=== PATIENT | female | born 1975 | race Caucasian/White ===

== ENCOUNTER 2021-06-26 02:07 | Emergency (ER) | payer SELFPAY ==
[2021-06-26 02:29] VITALS: BMI 30.2
[2021-06-26 03:32] LABS: BASO % 0.4 % (0-2.0); HEMATOCRIT 39.1 % (32.4-45.2); HEMOGLOBIN 13.9 GM/dL (10.7-15.3); LYMPH % 18.9 % (8-40); MCH 29.7 pg (25.7-33.7); MCHC 35.5 g/dl (32.0-36.0); MEAN CELL VOLUME 83.5 fl (80-96); MEAN PLT VOLUME 8.7 fl (7.5-11.1); MONO % 8.2 % (3.8-10.2); NEUT % 71.5 % (42.8-82.8); PLATELET COUNT 235 10^3/uL (134-434); RBC 4.68 M/mm3 (3.60-5.2); RDW 13.3 % (11.6-15.6); WHITE BLOOD COUNT 10.2 K/mm3 (4.0-10.0)
[2021-06-26 03:54] LABS: CALCIUM 8.7 mg/dL (8.5-10.1)
[2021-06-26 03:55] LABS: BLOOD UREA NITROGEN 7.8 mg/dL (7-18)
[2021-06-26 03:58] LABS: CREATININE 0.6 mg/dL (0.55-1.3)
[2021-06-26 03:59] LABS: BILIRUBIN,TOTAL 0.4 mg/dL (0.2-1)
[2021-06-26 04:00] LABS: TOT PROT 7.3 g/dl (6.4-8.2)
[2021-06-26 06:28] LABS: EPI CELLS 24 /uL (0-25.1); HYALINE CASTS 0 /uL (0-3.1); URINE APPEARANCE CLEAR; URINE BACTERIA 242 /uL (0-1359); URINE BILIRUBIN NEGATIVE (NEGATIVE); URINE COLOR YELLOW; URINE GLUCOSE (UA) NEGATIVE (NEGATIVE); URINE KETONE NEGATIVE (NEGATIVE); URINE LEUK ESTERASE TRACE (NEGATIVE); URINE NITRITE NEGATIVE (NEGATIVE); URINE PROTEIN NEGATIVE (NEGATIVE); URINE RBC 9 /uL (0-23.9); URINE UROBILINOGEN 0.2 mg/dL (0.2-1.0); URINE WBC 20 /uL (0-25.8)
[2021-06-26 06:40] LABS: HCG,QUALITATIVE URINE Positive
[2021-06-26 08:05] VITALS: BP 125/67; PULSE 65; TEMP 98.3
== END 2021-06-26 09:51 | disposition home or self-care (01) ==
LOC: JER 02:07
DX: O26.891 Other specified pregnancy related conditions, first trimester (principal); R10.2 Pelvic and perineal pain; Z3A.08 8 weeks gestation of pregnancy
CPT/HCPCS: 36415; 76817-TC; 80053; 81003; 84702; 84703; 85025; 86850; 86900; 86901; 87086; 99284-25

== ENCOUNTER 2021-09-03 19:47 | Emergency (ER) | payer OTHER ==
[2021-09-03 20:22] VITALS: BP 113/73; PULSE 83; TEMP 98.1; BMI 34.7
[2021-09-03 21:09] LABS: BASO % 0.5 % (0-2.0); EOS % 2.3 % (0-4.5); HEMATOCRIT 35.9 % (32.4-45.2); HEMOGLOBIN 12.7 GM/dL (10.7-15.3); LYMPH % 20.8 % (8-40); MCH 29.7 pg (25.7-33.7); MCHC 35.4 g/dl (32.0-36.0); MEAN PLT VOLUME 8.3 fl (7.5-11.1); MONO % 8.6 % (3.8-10.2); NEUT % 67.8 % (42.8-82.8); PLATELET COUNT 218 10^3/uL (134-434); RBC 4.27 M/mm3 (3.60-5.2); RDW 13.8 % (11.6-15.6); WHITE BLOOD COUNT 9.3 K/mm3 (4.0-10.0)
[2021-09-03 21:20] LABS: EPI CELLS >36 /uL (0-25.1); HYALINE CASTS 1 /uL (0-3.1); PH,URINE 6.5 (5.0-8.0); URINE APPEARANCE CLEAR; URINE BACTERIA 165 /uL (0-1359); URINE BILIRUBIN NEGATIVE (NEGATIVE); URINE COLOR YELLOW; URINE GLUCOSE (UA) NEGATIVE (NEGATIVE); URINE KETONE NEGATIVE (NEGATIVE); URINE LEUK ESTERASE NEGATIVE (NEGATIVE); URINE NITRITE NEGATIVE (NEGATIVE); URINE PROTEIN NEGATIVE (NEGATIVE); URINE RBC 14 /uL (0-23.9); URINE WBC 11 /uL (0-25.8)
[2021-09-03 21:40] LABS: CALCIUM 8.7 mg/dL (8.5-10.1)
[2021-09-03 21:41] LABS: ALBUMIN 3.3 g/dl (3.4-5.0); BLOOD UREA NITROGEN 4.9 mg/dL (7-18)
[2021-09-03 21:44] LABS: CREATININE 0.4 mg/dL (0.55-1.3)
[2021-09-03 21:46] LABS: BILIRUBIN,TOTAL 0.4 mg/dL (0.2-1); TOT PROT 6.7 g/dl (6.4-8.2)
== END 2021-09-03 22:41 | disposition home or self-care (01) ==
LOC: JERFT 19:47 → JER 19:47 → JERFT 22:41
DX: O20.8 Other hemorrhage in early pregnancy (principal); Z3A.18 18 weeks gestation of pregnancy
CPT/HCPCS: 36415; 76817-TC; 80053; 81003; 85025; 87086; 99284-25

== ENCOUNTER 2022-01-27 09:40 | Inpatient (IN) | payer OTHER ==
[2022-01-27] MEDS ORDERED: BUTORPHANOL TARTRATE 1 MG/ML VIAL IVPUSH ONE (10:03)
[2022-01-27] MEDS ORDERED: PROMETHAZINE HCL 25 MG/1 ML VIAL IVPUSH ONE (10:03)
[2022-01-27] MEDS ORDERED: DEXTROSE 5%-LACTATED RINGERS 1,000 ML IV SCH (10:15)
[2022-01-27] MEDS ORDERED: BUTORPHANOL TARTRATE 1 MG/ML VIAL ONE (10:22)
[2022-01-27] MEDS ORDERED: OXYTOCIN 20 UNITS in 0.9% NS 20 UNIT/1,000 ML INFUS.BAG IV ONE (10:23)
[2022-01-27] MEDS ORDERED: PROMETHAZINE HCL 25 MG/1 ML VIAL ONE (10:23)
[2022-01-27 11:10] VITALS: BMI 36.2
[2022-01-27 11:15] LABS: BASO % 0.3 % (0-2.0); EOS % 0.5 % (0-4.5); HEMATOCRIT 36.6 % (32.4-45.2); HEMOGLOBIN 12.1 GM/dL (10.7-15.3); LYMPH % 8.6 % (8-40); MCH 26.7 pg (25.7-33.7); MEAN CELL VOLUME 80.8 fl (80-96); MONO % 5.8 % (3.8-10.2); NEUT % 84.8 % (42.8-82.8); PLATELET COUNT 177 10^3/uL (134-434); RBC 4.53 M/mm3 (3.60-5.2); RDW 14.7 % (11.6-15.6); WHITE BLOOD COUNT 11.6 K/mm3 (4.0-10.0)
[2022-01-27] MEDS ORDERED: OXYTOCIN 30 UNITS in 0.9% NS 30 UNIT/500 ML INFUS.BAG IVPB ONE (11:20)
[2022-01-27 11:24] LABS: INR 1.11 (0.83-1.09); PROTHROMBIN TIME (PATIENT) 12.8 SEC (9.7-13.0)
[2022-01-27 11:26] LABS: ACTIVATED PTT 24.5 SECONDS (25.2-36.5)
[2022-01-27 11:42] LABS: BLOOD UREA NITROGEN 8.9 mg/dL (7-18); CALCIUM 8.7 mg/dL (8.5-10.1)
[2022-01-27] MEDS ORDERED: OXYTOCIN 30 UNITS in 0.9% NS 30 UNIT/500 ML INFUS.BAG IVPB SCH (11:45)
[2022-01-27 11:46] LABS: CREATININE 0.4 mg/dL (0.55-1.3)
[2022-01-27 13:45] LABS: CORD HCO3 21.4 mmHg (20-29); CORD pH 7.201 (7.14-7.44)
[2022-01-27 13:49] LABS: CORD BASE EXCESS -8.8 mmol/L (0-2); CORD HCO3 17.4 mmHg (20-29); CORD PCO2 38.6 mmHg (30-78); CORD pH 7.272 (7.14-7.44)
[2022-01-27] MEDS ORDERED: WITCH HAZEL 50% (TUCKS) 40 PAD/JAR PAD TP PRN (13:52)
[2022-01-27] MEDS ORDERED: ACETAMINOPHEN 325 MG TABLET (FP) PO PRN (13:52)
[2022-01-27] MEDS ORDERED: METHYLERGONOVINE MALEATE 0.2 MG/1 ML AMP IM ONE (13:52)
[2022-01-27] MEDS ORDERED: IBUPROFEN 600 MG TABLET (FP) PO PRN (13:52)
[2022-01-27] MEDS ORDERED: BENZOCAINE 20% 57 GM BOTTLE TP PRN (13:52)
[2022-01-27] MEDS ORDERED: METHYLERGONOVINE MALEATE 0.2 MG/1 ML AMP IM PRN (13:52)
[2022-01-27] MEDS ORDERED: BISACODYL 10 MG SUPP.RECT RC PRN (13:52)
[2022-01-27] MEDS ORDERED: BENZOCAINE 28 GM HEMORRHOIDAL OINTMENT TP PRN (13:52)
[2022-01-27] MEDS ORDERED: oxyCODONE HCL 5 MG TABLET PO PRN (13:52)
[2022-01-27] MEDS ORDERED: OXYTOCIN 20 UNITS in 0.9% NS 20 UNIT/1,000 ML INFUS.BAG IV SCH (14:00)
[2022-01-27 15:01] VITALS: RESP 18
[2022-01-28 08:37] LABS: BASO % 0.3 % (0-2.0); EOS % 0.7 % (0-4.5); HEMATOCRIT 32.3 % (32.4-45.2); HEMOGLOBIN 11.2 GM/dL (10.7-15.3); LYMPH % 14.9 % (8-40); MCHC 34.6 g/dl (32.0-36.0); MEAN CELL VOLUME 80.8 fl (80-96); MEAN PLT VOLUME 9.6 fl (7.5-11.1); MONO % 7.4 % (3.8-10.2); NEUT % 76.7 % (42.8-82.8); PLATELET COUNT 160 10^3/uL (134-434); WHITE BLOOD COUNT 11.4 K/mm3 (4.0-10.0)
[2022-01-28] MEDS ORDERED: SENNOSIDES/DOCUSATE COMBO (SENNA PLUS) TABLET (UD) PO PRN (22:00)
[2022-01-28 22:51] VITALS: TEMP 98.5
[2022-01-29 10:51] VITALS: BP 125/81; PULSE 77
== END 2022-01-29 12:20 | disposition home or self-care (01) | DRG 560 ==
LOC: JLDR 09:40 → J3W 14:45
PROVIDERS: ADMIT Obstetrics & Gynecology; ATTEND Obstetrics & Gynecology
PROC: 10E0XZZ Delivery of Products of Conception, External Approach (ICD-10-PCS; principal; 2022-01-27)
DX: O80 Encounter for full-term uncomplicated delivery (principal); Z3A.38 38 weeks gestation of pregnancy; Z37.0 Single live birth
CPT/HCPCS: 36415; 36600; 59025; 59409; 80048; 82803; 85025; 85610; 85730; 86780; 86850; 86900; 86901; C9803-CS; U0003; U0005

== ENCOUNTER 2022-02-01 16:27 | Inpatient (IN) | payer OTHER ==
[2022-02-01 16:48] VITALS: BMI 35.6
[2022-02-01] MEDS ORDERED: LABETALOL HCL 5 MG/1 ML (100MG/20 ML VIAL) IVPUSH ONE ×2 (17:14→17:43)
[2022-02-01] MEDS ORDERED: MAGNESIUM 4GM/H20 - 4 GM/100 ML IVPB IVPB SCH (17:15)
[2022-02-01] MEDS ORDERED: MAGNESIUM SULFATE IN WATER 4 GM/100 ML IVPB IVPB ONE (17:22)
[2022-02-01] MEDS: MAGNESIUM SULFATE 20GM/500ML - 20 GM/500 ML INFUS.BAG IV SCH (18:00)
[2022-02-01 18:02] LABS: BASO % 0.4 % (0-2.0); HEMATOCRIT 33.3 % (32.4-45.2); HEMOGLOBIN 11.4 GM/dL (10.7-15.3); LYMPH % 10.8 % (8-40); MCH 28.1 pg (25.7-33.7); MCHC 34.3 g/dl (32.0-36.0); MEAN CELL VOLUME 81.9 fl (80-96); MEAN PLT VOLUME 7.9 fl (7.5-11.1); MONO % 7.4 % (3.8-10.2); NEUT % 80.4 % (42.8-82.8); PLATELET COUNT 288 10^3/uL (134-434); RBC 4.06 M/mm3 (3.60-5.2); WHITE BLOOD COUNT 9.6 K/mm3 (4.0-10.0)
[2022-02-01] MEDS ORDERED: LABETALOL HCL 100 MG TABLET (FP) PO SCH (18:03)
[2022-02-01] MEDS ORDERED: ACETAMINOPHEN 1000 MG/100 ML BAG IVPB ONE (18:08)
[2022-02-01 18:09] LABS: INR 1.28 (0.83-1.09); PROTHROMBIN TIME (PATIENT) 14.8 SEC (9.7-13.0)
[2022-02-01 18:11] LABS: ACTIVATED PTT 23.9 SECONDS (25.2-36.5)
[2022-02-01] MEDS ORDERED: ELECTROLYTE-148 SOLN 1,000 ML IV SCH (18:15)
[2022-02-01 18:19] LABS: CALCIUM 8.6 mg/dL (8.5-10.1)
[2022-02-01 18:20] LABS: ALBUMIN 2.8 g/dl (3.4-5.0); BLOOD UREA NITROGEN 13.7 mg/dL (7-18)
[2022-02-01 18:23] LABS: CREATININE 0.6 mg/dL (0.55-1.3); URIC ACID 4.1 mg/dL (2.6-7.2)
[2022-02-01 18:24] LABS: BILIRUBIN,TOTAL 0.4 mg/dL (0.2-1); TOT PROT 6.7 g/dl (6.4-8.2)
[2022-02-01] MEDS ORDERED: LABETALOL HCL 200 MG TABLET (FP) ONE ×2 (18:36→18:37)
[2022-02-01] MEDS ORDERED: ACETAMINOPHEN INJECTION 100 ML IVPB ONE (20:06)
[2022-02-02] MEDS ORDERED: MAGNESIUM SULFATE 20GM/500ML - 20 GM/500 ML INFUS.BAG ONE ×2 (03:13→14:19)
[2022-02-02] MEDS: MAGNESIUM SULFATE 20GM/500ML - 20 GM/500 ML INFUS.BAG IV SCH ×3 (03:15→18:28)
[2022-02-02] MEDS ORDERED: LABETALOL HCL 100 MG TABLET (FP) PO SCH (06:00)
[2022-02-02] MEDS ORDERED: LABETALOL HCL 200 MG TABLET (FP) ONE (06:34)
[2022-02-02 06:51] LABS: MAGNESIUM 5.2 mg/dL (1.8-2.4)
[2022-02-02] MEDS ORDERED: ZOLPIDEM TARTRATE 5 MG TABLET PO ONE (08:02)
[2022-02-02] MEDS ORDERED: ACETAMINOPHEN 1000 MG/100 ML BAG IVPB ONE (08:02)
[2022-02-02] MEDS: LABETALOL HCL 100 MG TABLET (FP) PO SCH ×2 (09:06→21:00)
[2022-02-02] MEDS ORDERED: ZOLPIDEM TARTRATE 5 MG TABLET ONE (10:22)
[2022-02-02 12:49] LABS: MAGNESIUM 5.6 mg/dL (1.8-2.4)
[2022-02-02 18:08] LABS: HEMATOCRIT 33.8 % (32.4-45.2); HEMOGLOBIN 11.2 GM/dL (10.7-15.3); MCHC 33.1 g/dl (32.0-36.0); MEAN CELL VOLUME 81.5 fl (80-96); PLATELET COUNT 327 10^3/uL (134-434); RBC 4.15 M/mm3 (3.60-5.2); RDW 15.2 % (11.6-15.6); WHITE BLOOD COUNT 8.4 K/mm3 (4.0-10.0)
[2022-02-02 18:25] LABS: MAGNESIUM 5.6 mg/dL (1.8-2.4)
[2022-02-02 18:26] LABS: CALCIUM 7.5 mg/dL (8.5-10.1)
[2022-02-02 18:27] LABS: ALBUMIN 2.7 g/dl (3.4-5.0); BLOOD UREA NITROGEN 7.2 mg/dL (7-18)
[2022-02-02 18:30] LABS: CREATININE 0.4 mg/dL (0.55-1.3)
[2022-02-02 18:31] LABS: BILIRUBIN,TOTAL 0.3 mg/dL (0.2-1)
[2022-02-02 18:32] LABS: TOT PROT 6.1 g/dl (6.4-8.2)
[2022-02-03 06:08] VITALS: PULSE 64
[2022-02-03] MEDS: LABETALOL HCL 100 MG TABLET (FP) PO SCH ×2 (08:04→09:24)
[2022-02-03 08:06] VITALS: RESP 18; TEMP 97.5
[2022-02-03 09:39] VITALS: BP 128/80
== END 2022-02-03 10:30 | disposition home or self-care (01) | DRG 561 ==
LOC: JER 16:27 → JLDR 18:09 → J3W 02-02 20:24
PROVIDERS: ADMIT Student in an Organized Health Care Education/Training Program; ATTEND Student in an Organized Health Care Education/Training Program
DX: O14.15 Severe pre-eclampsia, complicating the puerperium (principal); R51.9 Headache, unspecified; G47.00 Insomnia, unspecified; R60.0 Localized edema
CPT/HCPCS: 36415; 70450-TC; 80053; 83615; 83735; 84550; 85025; 85027; 85384; 85610; 85730; 99285-25; C9803-CS; U0003; U0005

== ENCOUNTER 2022-02-03 20:30 | Emergency (ER) | payer OTHER ==
[2022-02-03 20:38] VITALS: BP 153/79; PULSE 71; RESP 19; TEMP 98.3; BMI 34.0
== END 2022-02-03 23:05 | disposition home or self-care (01) ==
LOC: JER 20:30
DX: R07.9 Chest pain, unspecified (principal); R00.2 Palpitations
CPT/HCPCS: 36415; 84484; 93005; 93010; 99284-25